=== PATIENT | male | born 1980 | race Caucasian/White ===

== ENCOUNTER → 2018-04-27 | Outpatient (CLI) | payer OTHER ==
--- NOTE | 2018-04-27 10:07 | REP ---
MRI LUMBAR SPINE WITHOUT CONTRAST: HISTORY: Back pain. Decreased signal intensity on T2-weighted images is present in the L2-3 through L5-S1 intervertebral discs. The discs are decreased in height. These findings are consistent with disc degeneration. There is no disc bulge or herniation at the L1-2 level. The L1 nerves exit the neural foramina without compression. A diffuse disc bulge is present at the L2-3 level. There is an increase in the amount of epidural fat. There is minimal compression of the thecal sac. There is hypertrophy of the posterior articulating facets. The L2 nerves exit the neural foramina without compression. A diffuse disc bulge and small left paracentral and intraforaminal disc protrusion are present at the L3-4 level. There is an increase in the amount of epidural fat. There is moderate compression of the thecal sac. There is hypertrophy of the posterior articulating facets. The L3 nerves exit the neural foramina without compression. A diffuse disc bulge is present at the L4-5 level. There is an increase in the amount of epidural fat. There is moderate compression of the thecal sac. There is hypertrophy of the posterior articulating facets. The L4 nerves exit the neural foramina without compression. A diffuse disc bulge and small right paracentral and intraforaminal disc protrusion are present at the L5-S1 level. There is an increase in the amount of epidural fat. There is minimal compression of the thecal sac. There is hypertrophy of the posterior articulating facets. There is compression of the right L5 nerve in the neural foramen. The left L5 nerve exits the neural foramen without compression. The conus medullaris is normal in appearance terminating at the level of the T12-L1 intervertebral disc. A hemangioma is present in the L1 vertebral body. Increased signal intensity on T2-weighted images is present in the endplates of the L4 and 5 vertebral bodies. This represents degenerative change. IMPRESSION: 1. Diffuse disc bulge and epidural lipomatosis at the L2-3 level with minimal thecal sac compression. 2. Diffuse disc bulge and small left paracentral and intraforaminal disc protrusion and epidural lipomatosis at the L3-4 level with moderate thecal sac compression. 3. Diffuse disc bulge and epidural lipomatosis at the L4-5 level with moderate thecal sac compression. 4. Diffuse disc bulge and small right paracentral and intraforaminal disc protrusion and epidural lipomatosis at the L5-S1 level with minimal thecal sac compression. There is compression of the right L5 nerve in the neural foramen. Electronically Signed by Ventura Rebolledo MD 04/27/2018 10:12 A
== END ==
LOC: M RAD 08:31
PROVIDERS: ATTEND Physician Assistant
DX: M51.26 Other intervertebral disc displacement, lumbar region (principal)

== ENCOUNTER → 2020-02-28 | Outpatient (CLI) | payer OTHER ==
--- NOTE | 2020-03-01 14:50 | SLEEPCENT ---
NOCTURNAL POLYSOMNOGRAPHY DATE: 02/28/2020 ORDERED BY: CHEN YARBROUGH Nocturnal polysomnography was performed for evaluation of sleep physiology in this patient with a history of snoring and nonrestorative sleep. 6 hours and 56 minutes of data were reviewed. There were 380.5 minutes of sleep identified. Sleep latency was normal at 5.5 minutes. REM sleep was not achieved. Sleep architecture showed poor progression and some fragmentation early in the study. Overall sleep efficiency was 93.4%, but there was no REM time. The patient's electrocardiogram showed a sinus rhythm with an average heart rate of 68 beats per minute and rate range 55 to 80. EEG showed fairly normal waveforms for wake and sleep. There were no focal events. There were 501 respiratory events identified of 10 seconds in duration or greater for an apnea-hypopnea index of 79. Having clearly established the presence of obstructive sleep apnea syndrome early in study, the test was stopped for the application of pressure therapy. The patient was fit with a ResMed Quattro full face mask of large size, 5 cm of water pressure were applied to the circuit, and the lights were extinguished. Over the course of the remaining hours of testing, pressure titration was performed from 5 to 15 cm of pressure. Best sleep was seen on 14 cm; however, time at pressure was limited and events did persist despite increases in pressure. IMPRESSION: Severe obstructive sleep apnea syndrome (G47.33), apnea-hypopnea index 79. RECOMMENDATION: Initiation of pressure therapy at 14 cm of water may be helpful, but is unlikely to be fully palliative. The patient should be encouraged to [facility] for a full night titration to achieve optimal pressure. Dr. Mason
== END ==
LOC: M SLEEP 20:00
PROVIDERS: ATTEND Nurse Practitioner Family
DX: G47.33 Obstructive sleep apnea (adult) (pediatric) (principal); R06.83 Snoring

== ENCOUNTER → 2020-03-31 | Outpatient (CLI) | payer OTHER ==
--- NOTE | 2020-04-02 16:02 | SLEEPCENT ---
NOCTURNAL POLYSOMNOGRAPHY CPAP TITRATION DATE: 03/31/2020 ORDERED BY: LUCITA Meyers Nocturnal polysomnography was performed for the titration of pressure therapy in this patient with severe obstructive sleep apnea syndrome/ For testing a ResMed AirFit F20 full face mask of large size was used, 14 cm of water pressure was initially applied to the circuit, and the lights were extinguished. 8 hours and 24 minutes of data were reviewed. There were 321.5 minutes of sleep identified. Sleep latency was prolonged at 33.5 minutes. REM latency was prolonged at 264.5 minutes. Sleep architecture improved late in the study and there were two REM cycles noted. Overall sleep efficiency was 64.9%. The electrocardiogram showed a sinus rhythm with an average heart rate of 60 beats per minute. EEG showed reasonably normal waveforms for wake and sleep. Persistent respiratory events prompted an increase in CPAP pressure. Despite optimal mask fit and minimal air leak, the patient required a change to a BiLevel device. Pressures were increased and best sleep was appreciated on the inspiratory pressure of 25/expiratory pressure of 21. IMPRESSION: Obstructive sleep apnea syndrome (G47.33). RECOMMENDATION: Nightly use of pressure therapy delivered via BiLevel device inspiratory 25/expiratory 21.
== END ==
LOC: M SLEEP 20:00
PROVIDERS: ATTEND Nurse Practitioner Family
DX: G47.33 Obstructive sleep apnea (adult) (pediatric) (principal)

== ENCOUNTER → 2023-11-13 | Outpatient (CLI) | payer OTHER | LOC: M PLARAD 14:05 | PROVIDERS: ATTEND Psychiatry & Neurology Neurology | DX: G25.0 Essential tremor (principal); G32.81 Cerebellar ataxia in diseases classified elsewhere; R41.1 Anterograde amnesia ==

== ENCOUNTER → 2023-11-13 | Outpatient (CLI) | payer OTHER ==
[2023-11-13 19:13] LABS: BASO % 0.5 % (0.0-1.0); EOS # 0.1 10^3/uL (0.0-0.5); EOS % 1.1 % (0.0-3.0); HEMATOCRIT 43.6 % (42.0-52.0); HEMOGLOBIN 14.2 g/dl (13.5-17.5); LYMPH # 2.2 10^3/uL (1.5-5.0); LYMPH % 27.1 % (24.0-44.0); MEAN CORPUSCULAR HEMOGLOBIN 29.2 pg (27.0-33.0); MEAN CORPUSCULAR HGB CONC 32.6 g/dl (32.0-36.5); MEAN CORPUSCULAR VOLUME 89.7 fl (80.0-96.0); MONO # 0.7 10^3/uL (0.0-0.8); MONO % 8.3 % (2.0-8.0); NEUTROPHILS # 4.9 10^3/uL (1.5-8.5); NEUTROPHILS % 62.1 % (36.0-66.0); PLATELET COUNT, AUTOMATED 161 10^3/uL (150-450); RED BLOOD COUNT 4.86 10^6/uL (4.30-6.10); WHITE BLOOD COUNT 7.9 10^3/uL (4.0-10.0)
[2023-11-13 19:39] LABS: THYROID STIMULATING HORMONE 1.716 uIU/ML (0.55-4.78); THYROXINE (T4) 5.2 UG/DL (4.5-10.9)
[2023-11-13 19:41] LABS: FOLATE 13.8 NG/ML (>5.4)
[2023-11-13 19:42] LABS: VITAMIN B12 LEVEL 564 PG/ML (211-911)
[2023-11-13 19:43] LABS: ALBUMIN 4.3 G/DL (3.2-5.2); ALKALINE PHOSPHATASE 69 U/L (46-116); ALT/SGPT 32 U/L (7.0-40); AST/SGOT 20 U/L (<34); BILIRUBIN,TOTAL 0.3 MG/DL (0.3-1.2); BLOOD UREA NITROGEN 12 MG/DL (9-23); CALCIUM LEVEL 9.2 MG/DL (8.5-10.1); CARBON DIOXIDE LEVEL 30 MMOL/L (20-31); CHLORIDE LEVEL 110 MMOL/L (98-107); CREATININE FOR GFR 0.97 MG/DL (0.70-1.30); GLOMERULAR FILTRATION RATE > 60.0 (>60); GLUCOSE, FASTING 100 MG/DL (60-100); SODIUM LEVEL 144 MMOL/L (136-145); TOTAL PROTEIN 7.3 G/DL (5.7-8.2)
[2023-11-13 21:33] LABS: T UPTAKE 39.2 % (22.5-37.0)
== END ==
LOC: M PLALAB 15:11
PROVIDERS: ATTEND Psychiatry & Neurology Neurology
DX: E53.8 Deficiency of other specified B group vitamins (principal); E07.9 Disorder of thyroid, unspecified; R25.1 Tremor, unspecified

== ENCOUNTER → 2024-10-26 | Outpatient (CLI) | payer BC | LOC: M RAD 07:30 | PROVIDERS: ATTEND Internal Medicine Gastroenterology | DX: R10.11 Right upper quadrant pain (principal); R11.2 Nausea with vomiting, unspecified; K21.9 Gastro-esophageal reflux disease without esophagitis; R14.3 Flatulence; K80.20 Calculus of gallbladder without cholecystitis without obstruction ==